=== PATIENT | male | born 1965 | race Caucasian/White ===

== ENCOUNTER 2016-08-19 07:35 | Day surgery (SDC) | payer BC ==
[~2016-08-19 07:35] MED LIST: Lactated Ringers 1,000 ML IV SCH; Lidocaine 1%/Sod Bicarbonate in NS 8.4% 1 ML Syringe IV PRN; Midazolam 1 MG/ML 2 ML SDV ONE; Propofol 200 MG/20 ML SDV ONE; Sodium Chloride 0.9% 10 ML Syringe FLUSH PRN
--- NOTE | 2016-08-19 07:40 | PCM.PREANE ---
Preanesthetic Assessment - Anesthesia/Transfusion/Family Hx Anesthesia History: No Prior Anesthesia Family History of Anesthesia Reaction: No Transfusion History: No Prior Transfusion(s) Intubation History: Unknown - Review of Systems General: No Symptoms Pulmonary: No Symptoms (History of JITENDRA-with CPAP noted at night.) Cardiovascular: No Symptoms (history of HTN.), Dyspnea on Exertion (noted by patient however not outside of normal for being out of shapel) Gastrointestinal: No symptoms (GERD) Neurological: Headache Other: Reports: Sinus Problem (left sided cracked sinus noted by patient.) - Physical Assessment NPO Status Date: 08/18/16 NPO Status Time: 21:30 Pulse: 69 O2 Sat by Pulse Oximetry: 94 Respiratory Rate: 16 Blood Pressure: 148/77 Temperature: 36.3 C Height: 1.7 m Weight: 103 kg ASA Class: 2 Mental Status: Alert & Oriented x3 Airway Class: Mallampati = 2 Dentition: Reports: Normal Dentition, [place](s), Caries Thyro-Mental Finger Breadths: 3 Mouth Opening Finger Breadths: 3 ROM/Head Extension: Full Lungs: Clear to auscultation, Normal respiratory effort Cardiovascular: Regular Rate, Regular Rhythm - Allergies Allergies/Adverse Reactions: Allergies Allergy/AdvReac Type Severity Reaction Status Date / Time No Known Allergies Allergy Verified 08/18/16 16:27 - Anesthesia Plan Pre-Op Medication Ordered: None - Acknowledgements Anesthesia Type Planned: MAC Pt an Appropriate Candidate for the Planned Anesthesia: Yes Alternatives and Risks of Anesthesia Discussed w Pt/Guardian: Yes Pt/Guardian Understands and Agrees with Anesthesia Plan: Yes PreAnesthesia Questionnaire HEENT History: Reports: Allergic rhinitis Cardiovascular History: Reports: High cholesterol, Hypertension Respiratory History: Reports: Sleep apnea Gastrointestinal History: Reports: None Genitourinary History: Reports: None 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 Musculoskeletal History: Reports: Arthritis Neurological History: Reports: Headaches, chronic Psychiatric History: Reports: Other (see below) Other Psychiatric History: daytime somnolence Endocrine/Metabolic History: Reports: Obesity/BMI 30+ Hematologic History: Reports: None Immunologic History: Reports: None Oncologic (Cancer) History: Reports: None Dermatologic History: Reports: None - Past Surgical History Head Surgeries/Procedures: Reports: None - SUBSTANCE USE Smoking Status *Q: Never Smoker Recreational Drug Use History: No - HOME MEDS Home Medications: Home Meds Cetirizine [ZyrTEC] 10 mg PO DAILY PRN 08/18/16 [History] Fluticasone Propionate [Flonase Allergy Relief] 1 spray NASBOTH BID PRN [History] Lisinopril/Hydrochlorothiazide [Lisinopril-Hctz 10-12.5 mg Tab] 1 tab PO DAILY 08/18/16 [History] Meloxicam [Meloxicam] 15 mg PO DAILY 08/18/16 [History] - CURRENT (IN HOUSE) MEDS Current Meds: Current Medications Lactated Ringer's (Ringers, Lactated) 1,000 mls @ 125 mls/hr IV ASDIRECTED HUNTER Lidocaine/Sodium Bicarbonate (Buffered Lidocaine 1% In Ns 8.4%) 0.25 ml IV ONETIME PRN PRN Reason: Prior to IV Start Sodium Chloride (Saline Flush) 10 ml FLUSH ASDIRECTED PRN PRN Reason: Keep Vein Open Discontinued Medications Midazolam HCl (Versed 1 Mg/Ml) Confirm Administered Dose 2 mg .ROUTE .STK-MED ONE Stop: 08/19/16 07:16 Propofol (Diprivan 20 Ml) Confirm Administered Dose 200 mg .ROUTE .STK-MED ONE Stop: 08/19/16 07:15
[2016-08-19 09:02] VITALS: BP 142/81
--- NOTE | 2016-08-19 09:02 | PCM.OPNOTE ---
- General Post-Op/Procedure Note Date of Surgery/Procedure: 08/19/16 Operative Procedure(s): Colonoscopy with cold forceps polypectomy of a transverse, descending, sigmoid, and rectal polyp. Hot forceps removal of a proximal sigmoid polyp. Findings: 1. external hemorrhoid 2. diminutive distal transverse, distal descending, and proximal rectal polyps, 6 mm proximal, and distal sigmoid polyps. 3. complicated sigmoid diverticulosis Pre Op Diagnosis: screening colonoscopy Post-Op Diagnosis: 1. external hemorrhoids. 2. uncomplicated sigmoid diverticulosis. 3. 5 colon polyps in the area as described above Anesthesia Technique: MAC, Moderate sedation Primary Surgeon: Samson Sargent Pathology: multiple polyps from areas described above EBL in mLs: 0 Complications: None Condition: Good Free Text/Narrative:: After adequate IV sedation and analgesia was obtained the patient was placed on his left side. Perianal inspection revealed the uncomplicated external hemorrhoids most likely due to the bowel preparation. Digital rectal examination was performed and was unremarkable. The prostate was grossly normal. A lubricated colonoscope was inserted into the rectum then advanced under direct vision to the cecum without any difficulty. The bowel preparation was excellent. There were several diminutive polyps in the transverse, descending, and distal sigmoid areas. These were simply removed with cold forceps. There was an 8 mm sigmoid polyp, which was removed with hot snare. The specimen was captured, and the base was cauterized. There was a proximal rectal polyp which was 6 mm in size, which was also removed with cold forceps. There were no inflammatory changes seen throughout the examination. Air was removed, as I finished the procedure, which he tolerated well. Jacquard Card Cutter photographs were taken for the patient and for the record.
[2016-08-19] MEDS ORDERED: Propofol 200 MG/20 ML SDV ONE (09:04)
--- NOTE | 2016-08-19 09:24 | PCM48HPAN ---
Post Anesthesia Note - EVALUATION WITHIN 48HRS OF ANESTHETIC Vital Signs in Normal Range: Yes Patient Participated in Evaluation: Yes Respiratory Function Stable: Yes Airway Patent: Yes Cardiovascular Function Stable: Yes Hydration Status Stable: Yes Pain Control Satisfactory: Yes Nausea and Vomiting Control Satisfactory: Yes Mental Status Recovered: Yes
== END 2016-08-19 09:45 | disposition home or self-care (01) ==
LOC: JD.SDS 07:35
PROVIDERS: ATTEND Surgery
PROC: 0DBN8ZX Excision of Sigmoid Colon, Via Natural or Artificial Opening Endoscopic, Diagnostic (ICD-10-PCS; principal; 2016-08-19)
DX: Z12.11 Encounter for screening for malignant neoplasm of colon (principal); K57.30 Diverticulosis of large intestine without perforation or abscess without bleeding; K64.4 Residual hemorrhoidal skin tags; D12.3 Benign neoplasm of transverse colon; D12.4 Benign neoplasm of descending colon; D12.7 Benign neoplasm of rectosigmoid junction
CPT/HCPCS: 45380; 45385; 88305; J2250; J7120; 00810; J2704

== ENCOUNTER 2017-08-18 08:17 | Day surgery (SDC) | payer BC ==
[~2017-08-18 08:17] MED LIST changes: +Lidocaine 1%/Sod Bicarbonate in NS 8.4% 1 ML Syringe IDERM PRN; -Lidocaine 1%/Sod Bicarbonate in NS 8.4% 1 ML Syringe IV PRN; -Midazolam 1 MG/ML 2 ML SDV ONE; -Propofol 200 MG/20 ML SDV ONE
--- NOTE | 2017-08-18 08:55 | PCM.PREANE ---
Preanesthetic Assessment - Procedure Proposed Procedure: Diagnostic colonoscopy - Anesthesia/Transfusion/Family Hx Anesthesia History: Prior Anesthesia Without Reaction Family History of Anesthesia Reaction: No Transfusion History: No Prior Transfusion(s) Intubation History: Unknown - Review of Systems General: No Symptoms Pulmonary: Shortness of Breath, Other (JITENDRA with CPAP) Cardiovascular: Other (HTN, HX of chest pain a couple weeks ago, stress test negative ) Gastrointestinal: No Symptoms Neurological: No Symptoms Other: Reports: None - Physical Assessment NPO Status Date: 08/17/17 NPO Status Time: 21:00 O2 Sat by Pulse Oximetry: 94 Respiratory Rate: 17 Vital Signs: Last Vital Signs Temp 36.8 C 08/18/17 08:23 Pulse 72 08/18/17 08:23 Resp 17 08/18/17 08:23 BP 148/83 H 08/18/17 08:23 Pulse Ox 94 L 08/18/17 08:23 Height: 1.7 m Weight: 99.79 kg ASA Class: 2 Mental Status: Alert & Oriented x3 Airway Class: Mallampati = 1 Dentition: Reports: Normal Dentition Thyro-Mental Finger Breadths: 3 ROM/Head Extension: Full Lungs: Clear to Auscultation, Normal Respiratory Effort Cardiovascular: Regular Rate, Regular Rhythm - Allergies Allergies/Adverse Reactions: Allergies Allergy/AdvReac Type Severity Reaction Status Date / Time No Known Allergies Allergy Verified 08/18/17 08:49 - Blood Blood Available: No Product(s) Available: None - Anesthesia Plan Pre-Op Medication Ordered: None - Acknowledgements Anesthesia Type Planned: MAC Pt an Appropriate Candidate for the Planned Anesthesia: Yes Alternatives and Risks of Anesthesia Discussed w Pt/Guardian: Yes Pt/Guardian Understands and Agrees with Anesthesia Plan: Yes PreAnesthesia Questionnaire HEENT History: Reports: Allergic Rhinitis, Other (See Below) Other HEENT History: cerumen impaction, wears reading glasses Cardiovascular History: Reports: High Cholesterol, Hypertension, Other (See Below) Other Cardiovascular History: chest pain, chest pressure Respiratory History: Reports: Sleep Apnea Gastrointestinal History: Reports: None, Colon Polyp Genitourinary History: Reports: None, Other (See Below) Other Genitourinary History: 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 Musculoskeletal History: Reports: Arthritis Neurological History: Reports: Headaches, Chronic Psychiatric History: Reports: Other (See Below) Other Psychiatric History: daytime somnolence Endocrine/Metabolic History: Reports: Obesity/BMI 30+ Hematologic History: Reports: None Immunologic History: Reports: None Oncologic (Cancer) History: Reports: None Dermatologic History: Reports: None, Other (See Below) Other Dermatologic History: skin lesion, tkc bite, skin wound - Past Surgical History Head Surgeries/Procedures: Reports: None HEENT Surgical History: Reports: None Respiratory Surgical History: Reports: None GI Surgical History: Reports: Colonoscopy Female Surgical History: Reports: None Male Surgical History: Reports: None Endocrine Surgical History: Reports: None Musculoskeletal Surgical History: Reports: None Oncologic Surgical History: Reports: None Dermatological Surgical History: Reports: None - SUBSTANCE USE Smoking Status *Q: Never Smoker Recreational Drug Use History: No - HOME MEDS Home Medications: Home Meds Cetirizine [ZyrTEC] 10 mg PO DAILY PRN 08/18/16 [History] Fluticasone Propionate [Flonase Allergy Relief] 1 spray NASBOTH BID PRN [History] Lisinopril/Hydrochlorothiazide [Lisinopril-Hctz 10-12.5 mg Tab] 1 tab PO DAILY 08/18/16 [History] Meloxicam 15 mg PO DAILY 08/18/16 [History] - CURRENT (IN HOUSE) MEDS Current Meds: Current Medications Lactated Ringer's (Ringers, Lactated) 1,000 mls @ 125 mls/hr IV ASDIRECTED HUNTER Last Admin: 08/18/17 08:35 Dose: 125 mls/hr Lidocaine/Sodium Bicarbonate (Buffered Lidocaine 1% In Ns 8.4%) 0.25 ml IDERM ONETIME PRN PRN Reason: Prior to IV Start Sodium Chloride (Saline Flush) 10 ml FLUSH ASDIRECTED PRN PRN Reason: Keep Vein Open
[2017-08-18] MEDS ORDERED: Lidocaine 1% 4 ML ONE (08:57)
[2017-08-18] MEDS ORDERED: fentaNYL 100 MCG/2 ML SDV ONE (08:57)
[2017-08-18] MEDS ORDERED: Midazolam 1 MG/ML 2 ML SDV ONE (08:57)
[2017-08-18] MEDS ORDERED: Propofol 200 MG/20 ML SDV ONE (08:57)
--- NOTE | 2017-08-18 09:45 | PCM.OPNOTE ---
- General Post-Op/Procedure Note Date of Surgery/Procedure: 08/18/17 Operative Procedure(s): Colonoscopy with transverse colonic polypectomy Findings: 1. Internal hemorrhoids 2. Diminutive transverse colonic polyp Pre Op Diagnosis: History of multiple colorectal polyps Post-Op Diagnosis: 1. Internal hemorrhoids. 2. Diminutive transverse colonic polyp Anesthesia Technique: MAC, Moderate Sedation Primary Surgeon: Samson Sargent Pathology: Colon polyp EBL in mLs: 0 Complications: None Condition: Good Free Text/Narrative:: After adequate IV sedation and analgesia was obtained with monitoring the patient was placed on his left side. Perianal inspection revealed the right posterior hemorrhoid. Digital rectal examination was otherwise unremarkable. A lubricated colonoscope was inserted into the rectum and advanced under direct vision to the cecum without difficulty. The bowel preparation was excellent. The cecum ascending colon and transverse colons were only remarkable for a diminutive polyp less than 5 mm in diameter in the proximal transverse colon which was removed with cold forceps. The specimen was retrieved and the area was hemostatic. The descending colon and sigmoid colons were endoscopically normal with no mass lesions or inflammatory changes seen. The rectum in both views was unremarkable. Negative Developer photographs were taken for the patient and for the medical record. There were no comp occasions. Follow-up colonoscopy recommended in 5 years.
[2017-08-18 10:18] VITALS: BP 116/78
== END 2017-08-18 10:26 | disposition home or self-care (01) ==
LOC: JD.SDS 08:17
PROVIDERS: ATTEND Surgery
DX: D12.3 Benign neoplasm of transverse colon (principal); K64.8 Other hemorrhoids; M19.049 Primary osteoarthritis, unspecified hand; I10 Essential (primary) hypertension; G47.33 Obstructive sleep apnea (adult) (pediatric); R07.89 Other chest pain; E78.00 Pure hypercholesterolemia, unspecified; E78.5 Hyperlipidemia, unspecified; E66.9 Obesity, unspecified; Z68.36 Body mass index [BMI] 36.0-36.9, adult; Z79.51 Long term (current) use of inhaled steroids; Z79.899 Other long term (current) drug therapy; Z86.010 Personal history of colon polyps; Z80.0 Family history of malignant neoplasm of digestive organs
CPT/HCPCS: 45380; J2001; J2250; J3010; J7120; 00811; J2704

== ENCOUNTER 2019-01-05 09:24 | Day surgery (SDC) | payer BC ==
[~2019-01-05 09:24] MED LIST changes: -Lactated Ringers 1,000 ML IV SCH; +Lidocaine 1% PF 2 ML SDV INJECT SCH; -Lidocaine 1%/Sod Bicarbonate in NS 8.4% 1 ML Syringe IDERM PRN; -Sodium Chloride 0.9% 10 ML Syringe FLUSH PRN; +Tetracaine HCl/PF 0.5% 4 ML Bottle EYERT SCH
[2019-01-05] MEDS ORDERED: Sodium Chloride 0.9% 10 ML Syringe FLUSH PRN (10:29)
[2019-01-05] MEDS ORDERED: Lidocaine 1%/Sod Bicarbonate in NS 8.4% 1 ML Syringe IDERM PRN (10:29)
[2019-01-05] MEDS ORDERED: Lactated Ringers 1,000 ML IV SCH (10:30)
--- NOTE | 2019-01-05 11:03 | PCM.PREANE ---
Preanesthetic Assessment - Procedure Proposed Procedure: peterygium with graft right eye - Anesthesia/Transfusion/Family Hx Anesthesia History: Prior Anesthesia Without Reaction Family History of Anesthesia Reaction: No Transfusion History: No Prior Transfusion(s) Intubation History: Unknown - Review of Systems General: No Symptoms Pulmonary: No Symptoms Cardiovascular: No Symptoms Gastrointestinal: No Symptoms Neurological: No Symptoms Other: Reports: None - Physical Assessment NPO Status Date: 01/04/19 NPO Status Time: 21:00 Vital Signs: Last Vital Signs Temp 98.7 F 01/05/19 09:55 Pulse 60 01/05/19 09:55 Resp 16 01/05/19 09:55 BP 137/74 01/05/19 09:55 Pulse Ox 96 01/05/19 09:55 Height: 5 ft 7 in Weight: 102.058 kg ASA Class: 2 Mental Status: Alert & Oriented x3 Airway Class: Mallampati = 1 Dentition: Reports: Normal Dentition Thyro-Mental Finger Breadths: 3 Mouth Opening Finger Breadths: 3 ROM/Head Extension: Full Lungs: Clear to Auscultation, Normal Respiratory Effort Cardiovascular: Regular Rate, Regular Rhythm - Allergies Allergies/Adverse Reactions: Allergies Allergy/AdvReac Type Severity Reaction Status Date / Time No Known Allergies Allergy Verified 01/04/19 13:19 - Blood Blood Available: No - Acknowledgements Anesthesia Type Planned: MAC Pt an Appropriate Candidate for the Planned Anesthesia: Yes Alternatives and Risks of Anesthesia Discussed w Pt/Guardian: Yes Pt/Guardian Understands and Agrees with Anesthesia Plan: Yes PreAnesthesia Questionnaire HEENT History: Reports: Allergic Rhinitis, Other (See Below) Other HEENT History: cerumen impaction, wears reading glasses Cardiovascular History: Reports: High Cholesterol, Hypertension, Other (See Below) Other Cardiovascular History: chest pain, chest pressure Respiratory History: Reports: Sleep Apnea (cpap) Gastrointestinal History: Reports: None, Colon Polyp, GERD Genitourinary History: Reports: None, Other (See Below) Other Genitourinary History: 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 Musculoskeletal History: Reports: Arthritis Neurological History: Reports: Headaches, Chronic Psychiatric History: Reports: Other (See Below) Other Psychiatric History: daytime somnolence Endocrine/Metabolic History: Reports: Obesity/BMI 30+ Hematologic History: Reports: None Immunologic History: Reports: None Oncologic (Cancer) History: Reports: None Dermatologic History: Reports: None, Other (See Below) Other Dermatologic History: skin lesion, tkc bite, skin wound - Past Surgical History Head Surgeries/Procedures: Reports: None HEENT Surgical History: Reports: None Respiratory Surgical History: Reports: None GI Surgical History: Reports: Colonoscopy Female Surgical History: Reports: None Male Surgical History: Reports: None Endocrine Surgical History: Reports: None Musculoskeletal Surgical History: Reports: None, Arthroscopic Knee Oncologic Surgical History: Reports: None Dermatological Surgical History: Reports: None - SUBSTANCE USE Smoking Status *Q: Never Smoker Tobacco Use Within Last Twelve Months: No Second Hand Smoke Exposure: Yes Days Per Week of Alcohol Use: 0 Recreational Drug Use History: No - HOME MEDS Home Medications: Home Meds Lisinopril/Hydrochlorothiazide [Lisinopril-Hctz 10-12.5 mg Tab] 1 tab PO DAILY 08/18/16 [History] Meloxicam 15 mg PO DAILY 08/18/16 [History] Fenofibric Acid (Choline) [Fenofibric Acid] 135 mg PO DAILY 01/04/19 [History] Multivits,Ca,Min/Iron/FA/Lycop [Centrum Men's Tablet] 1 tab PO DAILY 01/04/19 [ History] Sildenafil [Revatio] 50 - 100 mg PO ASDIRECTED PRN 01/04/19 [History] - CURRENT (IN HOUSE) MEDS Current Meds: Current Medications Lactated Ringer's (Ringers, Lactated) 1,000 mls @ 125 mls/hr IV ASDIRECTED HUNTER Stop: 01/05/19 23:00 Last Admin: 01/05/19 10:45 Dose: 125 mls/hr Lidocaine HCl (Xylocaine-Mpf 1%) 0 ml INJECT ASDIRECTED HUNTER Stop: 01/05/19 18:00 Lidocaine/Sodium Bicarbonate (Buffered Lidocaine 1% In Ns 8.4%) 0.25 ml IDERM ONETIME PRN PRN Reason: Prior to IV Start Stop: 01/05/19 18:00 Last Admin: 01/05/19 10:45 Dose: 0.25 ml Sodium Chloride (Saline Flush) 10 ml FLUSH ASDIRECTED PRN PRN Reason: Keep Vein Open Stop: 01/05/19 18:00 Tetracaine HCl (Tetracaine 0.5% Steri-Unit Bette) 0 ml EYERT ASDIRECTED HUNTER Stop: 01/05/19 18:00
[2019-01-05] MEDS ORDERED: Midazolam 1 MG/ML 2 ML SDV ONE (11:13)
[2019-01-05] MEDS ORDERED: Lidocaine 1% 4 ML ONE (11:13)
[2019-01-05] MEDS ORDERED: fentaNYL 100 MCG/2 ML SDV ONE (11:13)
[2019-01-05] MEDS ORDERED: Propofol 200 MG/20 ML SDV ONE (11:13)
[2019-01-05] MEDS: Dexamethasone/Tobramycin 0.1-0.3% Ophth Susp 5 ML Bottle EYERT SCH ×2 (11:20→12:19)
[2019-01-05] MEDS: Phenylephrine 2.5% Ophth Soln 2 ML Bot EYERT SCH ×2 (11:25→11:31)
[2019-01-05] MEDS ORDERED: Lidocaine 1% with EPINEPHrine 1:100,000 20 ML MDV ONE (11:30)
--- NOTE | 2019-01-05 11:55 | PCM48HPAN ---
Post Anesthesia Note - EVALUATION WITHIN 48HRS OF ANESTHETIC Vital Signs in Normal Range: Yes Patient Participated in Evaluation: Yes Respiratory Function Stable: Yes Airway Patent: Yes Cardiovascular Function Stable: Yes Hydration Status Stable: Yes Pain Control Satisfactory: Yes Nausea and Vomiting Control Satisfactory: Yes Mental Status Recovered: Yes Vital Signs: Last Vital Signs Temp 37.1 C 01/05/19 09:55 Pulse 60 01/05/19 09:55 Resp 16 01/05/19 09:55 BP 137/74 01/05/19 09:55 Pulse Ox 96 01/05/19 09:55
[2019-01-05 13:14] VITALS: BP 136/63; PULSE 59
== END 2019-01-05 13:10 | disposition home or self-care (01) ==
LOC: JD.SDS 09:24
PROVIDERS: ATTEND Ophthalmology
DX: H11.051 Peripheral pterygium, progressive, right eye (principal); H11.042 Peripheral pterygium, stationary, left eye; H25.813 Combined forms of age-related cataract, bilateral; H02.831 Dermatochalasis of right upper eyelid; H02.834 Dermatochalasis of left upper eyelid; H16.103 Unspecified superficial keratitis, bilateral; I10 Essential (primary) hypertension; E78.00 Pure hypercholesterolemia, unspecified; M19.90 Unspecified osteoarthritis, unspecified site; Z79.1 Long term (current) use of non-steroidal anti-inflammatories (NSAID); Z79.899 Other long term (current) drug therapy
CPT/HCPCS: 65426; A9270; J2001; J2250; J2704; J3010; J7120

== ENCOUNTER 2019-11-21 07:43 | Day surgery (SDC) | payer BC ==
[~2019-11-21 07:43] MED LIST changes: +Lactated Ringers 1,000 ML IV SCH; -Lidocaine 1% PF 2 ML SDV INJECT SCH; +Lidocaine 1%/Sod Bicarbonate in NS 8.4% 1 ML Syringe IDERM PRN; +Midazolam 1 MG/ML 2 ML SDV ONE; +Propofol 200 MG/20 ML SDV ONE; +Sodium Chloride 0.9% 10 ML Syringe FLUSH PRN; -Tetracaine HCl/PF 0.5% 4 ML Bottle EYERT SCH
--- NOTE | 2019-11-21 08:46 | PCM.PREANE ---
Preanesthetic Assessment - Procedure Proposed Procedure: Colonoscopy - Anesthesia/Transfusion/Family Hx Anesthesia History: Prior Anesthesia Without Reaction Family History of Anesthesia Reaction: No Transfusion History: No Prior Transfusion(s) Intubation History: Unknown - Review of Systems General: No Symptoms Pulmonary: Shortness of Breath (Extreme activity or heavy lifting. 4 MET capacity with ease. ), Other (Sleep Apnea uses CPAP ) Cardiovascular: No Symptoms, Other (Hypertension. Negative Stress Test in 2018.) Gastrointestinal: No Symptoms Neurological: Headache Other: Reports: None (Obesity BMI 36 ), Sinus Problem (Mouth Breather, Small sinus cavity. Plans to see an ENT. ) - Physical Assessment NPO Status Date: 11/21/19 NPO Status Time: 04:00 Vital Signs: Last Vital Signs Temp 36.6 C 11/21/19 07:45 Pulse 67 11/21/19 07:45 Resp 16 11/21/19 07:45 BP 151/77 H 11/21/19 07:45 Pulse Ox 98 11/21/19 07:45 Height: 1.7 m Weight: 105.233 kg ASA Class: 3 Mental Status: Alert & Oriented x3 Airway Class: Mallampati = 3 Dentition: Reports: Normal Dentition Thyro-Mental Finger Breadths: 3 Mouth Opening Finger Breadths: 3 ROM/Head Extension: Full Lungs: Clear to Auscultation, Normal Respiratory Effort Cardiovascular: Regular Rate, Regular Rhythm - Allergies Allergies/Adverse Reactions: Allergies Allergy/AdvReac Type Severity Reaction Status Date / Time No Known Allergies Allergy Verified 11/20/19 13:26 - Anesthesia Plan Pre-Op Medication Ordered: None - Acknowledgements Anesthesia Type Planned: MAC Pt an Appropriate Candidate for the Planned Anesthesia: Yes Alternatives and Risks of Anesthesia Discussed w Pt/Guardian: Yes Pt/Guardian Understands and Agrees with Anesthesia Plan: Yes PreAnesthesia Questionnaire HEENT History: Reports: Allergic Rhinitis, Other (See Below) Other HEENT History: cerumen impaction, wears reading glasses Cardiovascular History: Reports: High Cholesterol, Hypertension, Other (See Below) Other Cardiovascular History: chest pain, chest pressure Respiratory History: Reports: Sleep Apnea Gastrointestinal History: Reports: None, Colon Polyp, GERD Genitourinary History: Reports: None, Other (See Below) Other Genitourinary History: 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, 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 Musculoskeletal History: Reports: Arthritis Neurological History: Reports: Headaches, Chronic Psychiatric History: Reports: Other (See Below) Other Psychiatric History: daytime somnolence Endocrine/Metabolic History: Reports: Obesity/BMI 30+ Hematologic History: Reports: None Immunologic History: Reports: None Oncologic (Cancer) History: Dermatologic History: Reports: None, Other (See Below) Other Dermatologic History: skin lesion, tkc bite, skin wound - Past Surgical History Head Surgeries/Procedures: HEENT Surgical History: Reports: None Respiratory Surgical History: Reports: None GI Surgical History: Reports: Colonoscopy Female Surgical History: Reports: None Male Surgical History: Reports: None Endocrine Surgical History: Reports: None Musculoskeletal Surgical History: Reports: None, Arthroscopic Knee Oncologic Surgical History: Reports: None Dermatological Surgical History: Reports: None - SUBSTANCE USE Smoking Status *Q: Never Smoker Tobacco Use Within Last Twelve Months: No Recreational Drug Use History: No - HOME MEDS Home Medications: Home Meds Lisinopril/Hydrochlorothiazide [Lisinopril-Hctz 10-12.5 mg Tab] 1 tab PO DAILY 08/18/16 [History] Meloxicam 15 mg PO DAILY 08/18/16 [History] Fenofibric Acid (Choline) [Fenofibric Acid] 135 mg PO DAILY 01/04/19 [History] Sildenafil [Revatio] 50 - 100 mg PO ASDIRECTED PRN 01/04/19 [History] Cetirizine [ZyrTEC] 10 mg PO DAILY PRN 11/20/19 [History] Fluticasone Propionate [Flonase] 1 spray NASBOTH ASDIRECTED PRN 11/20/19 [History] - CURRENT (IN HOUSE) MEDS Current Meds: Current Medications Lactated Ringer's (Ringers, Lactated) 1,000 mls @ 125 mls/hr IV ASDIRECTED HUNTER Stop: 11/21/19 23:00 Last Admin: 11/21/19 07:50 Dose: 125 mls/hr Documented by: Lidocaine/Sodium Bicarbonate (Buffered Lidocaine 1% In Ns 8.4%) 0.25 ml IDERM ONETIME PRN PRN Reason: Prior to IV Start Stop: 11/21/19 18:00 Last Admin: 11/21/19 07:50 Dose: 0.25 ml Documented by: Sodium Chloride (Saline Flush) 10 ml FLUSH ASDIRECTED PRN PRN Reason: Keep Vein Open Stop: 11/21/19 18:00 Discontinued Medications Midazolam HCl (Versed 1 Mg/Ml) Confirm Administered Dose 2 mg .ROUTE .STK-MED ONE Stop: 11/21/19 07:00 Propofol (Diprivan 20 Ml) Confirm Administered Dose 400 mg .ROUTE .STK-MED ONE Stop: 11/21/19 06:59
--- NOTE | 2019-11-21 09:33 | PCM.PRNOTE ---
- Free Text/Narrative Note: Date: 11/21/2019 Procedure: screening colonoscopy Endoscopist: Alvaro Barragan MD Findings: Ileocecal valve visualized. Prep was excellent. One small sessile polyp identified in sigmoid colon. Detailed Report: The patient was taken to the endoscopy suite and placed in left lateral decubitus position. Time out was performed and monitored anesthesia care was initiated. The anus appeared normal. Digital rectal exam was unremarkable. The lubricated colonoscope was then inserted and advanced all the way to the cecum. The ileocecal valve and appendiceal orifice were visualized. The prep was very good. On slow withdrawal of the scope, mucosal surfaces were carefully inspected. A subcentimeter flat polypoid lesion was noted in the area of the sigmoid colon. This was removed piecemeal with forceps and the remaining tissue was fulgurated. No diverticular disease or hemorrhoids noted. Air was evacuated prior to withdrawal of the scope. The patient tolerated the procedure well.
--- NOTE | 2019-11-21 09:40 | PCM48HPAN ---
Post Anesthesia Note - EVALUATION WITHIN 48HRS OF ANESTHETIC Vital Signs in Normal Range: Yes Patient Participated in Evaluation: Yes Respiratory Function Stable: Yes Airway Patent: Yes Cardiovascular Function Stable: Yes Hydration Status Stable: Yes Pain Control Satisfactory: Yes Nausea and Vomiting Control Satisfactory: Yes Mental Status Recovered: Yes Vital Signs: Last Vital Signs Temp 36.6 C 11/21/19 07:45 Pulse 67 11/21/19 07:45 Resp 16 11/21/19 07:45 BP 151/77 H 11/21/19 07:45 Pulse Ox 98 11/21/19 07:45
[2019-11-21 10:50] VITALS: BP 149/77; PULSE 61
== END 2019-11-21 10:35 | disposition home or self-care (01) ==
LOC: JD.SDS 07:43
PROVIDERS: ATTEND Surgery
DX: Z12.11 Encounter for screening for malignant neoplasm of colon (principal); D12.5 Benign neoplasm of sigmoid colon; I10 Essential (primary) hypertension; E66.9 Obesity, unspecified; E78.5 Hyperlipidemia, unspecified; E78.00 Pure hypercholesterolemia, unspecified; G47.30 Sleep apnea, unspecified; Z79.899 Other long term (current) drug therapy; Z98.890 Other specified postprocedural states; Z68.37 Body mass index [BMI] 37.0-37.9, adult; Z99.89 Dependence on other enabling machines and devices
CPT/HCPCS: 45380; J2250; J2704; J7120; 00812